=== PATIENT | male | born 1955 | race Caucasian/White ===

== ENCOUNTER 2017-02-11 08:11 | Emergency (ER) | payer BC ==
[2017-02-11] MEDS ORDERED: Ketorolac 30 MG/ML SDV IVPUSH ONE (08:47)
[2017-02-11] MEDS ORDERED: Metoclopramide 10 MG/2 ML SDV IVPUSH ONE (08:48)
--- NOTE | 2017-02-11 08:58 | EDM.PDOC ---
ED HPI GENERAL MEDICAL PROBLEM - General Chief Complaint: General Stated Complaint: NAUSUA Time Seen by Provider: 02/11/17 08:53 Source of Information: Reports: Patient History Limitations: Reports: No Limitations - History of Present Illness INITIAL COMMENTS - FREE TEXT/NARRATIVE: c/o malaise x 2d from [place], goes to [facility] had L TKR in [place] 4d ago, d/c'ed home 3d ago, had malaise x 2d, had apt at 4p at [facility] yesterday but "felt too bad to go,", had bitemporal LOWE yesterday PM that was worse on awakening today, took APAP x 2 and decided to come to ED holding head in his hands also has had urinary freq x 3d, no dysuria, no bladder or prostate problems in past has urge to void, voids only a little, drinking and eating little pt voided before coming to ED, bladder scan with 880 cc, will place an indwelling pozo not taken meds for his knee, pain 1/10 for knee and 7/10 for LOWE, states his bladder issue is 7/10 in terms of being troublesome (no pain however) Headache Pain Score (Numeric/FACES): 7 - Related Data Allergies Allergy/AdvReac Type Severity Reaction Status Date / Time codeine Allergy Nausea Verified 02/11/17 08:35 Penicillins Allergy Nausea Verified 02/11/17 08:35 Home Meds: Home Meds Aspirin [Adult Low Dose Aspirin EC] 81 mg PO DAILY 08/21/13 [History] Allopurinol [Zyloprim] 100 mg PO DAILY 02/11/17 [History] Celecoxib [Celecoxib] 200 mg PO DAILY 02/11/17 [History] oxyCODONE [oxyCODONE] 5 mg PO Q4HR PRN 02/11/17 [History] traMADol HCl [Tramadol HCl] 50 mg PO Q6HR PRN 02/11/17 [History] Past Medical History Musculoskeletal History: Reports: Gout - Past Surgical History Musculoskeletal Surgical History: Reports: Hip Replacement, Knee Replacement Social & Family History - Tobacco Use Smoking Status *Q: Never Smoker - Caffeine Use Caffeine Use: Reports: Coffee - Recreational Drug Use Recreational Drug Use: No ED ROS GENERAL - Review of Systems Review Of Systems: See Below Constitutional: Reports: Chills, Malaise, Decreased Appetite, Other (has had flu vax, no fever). Denies: Fever, Night Sweats, Diaphoresis HEENT: Reports: No Symptoms Respiratory: Reports: No Symptoms Cardiovascular: Reports: No Symptoms Endocrine: Reports: No Symptoms GI/Abdominal: Reports: No Symptoms : Reports: No Symptoms Musculoskeletal: Reports: No Symptoms Skin: Reports: No Symptoms Neurological: Reports: No Symptoms Psychiatric: Reports: No Symptoms Hematologic/Lymphatic: Reports: No Symptoms Immunologic: Reports: No Symptoms ED EXAM, GENERAL - Physical Exam Exam: See Below Exam Limited By: No Limitations General Appearance: Alert, WD/WN, Mild Distress, Other (sitting in chair, holding head in his hands, leaning forward) Eye Exam: Bilateral Eye: Normal Inspection, PERRL Ears: Normal External Exam, Normal Canal, Hearing Grossly Normal Nose: Normal Inspection, Normal Mucosa, No Blood Throat/Mouth: Normal Inspection, Normal Lips, Normal Teeth, Normal Gums, Normal Oropharynx, Normal Voice, No Airway Compromise Head: Atraumatic, Normocephalic Neck: Normal Inspection, Supple, Non-Tender, Full Range of Motion Respiratory/Chest: No Respiratory Distress, Lungs Clear, Normal Breath Sounds, No Accessory Muscle Use, Chest Non-Tender Cardiovascular: Regular Rate, Rhythm, No Edema, No Gallop, No JVD, No Murmur, No Rub GI/Abdominal: Normal Bowel Sounds, Soft, No Organomegaly, No Distention, Other ( slight tender LLQ just to L of midline) Back Exam: Normal Inspection. No: CVA Tenderness (R), CVA Tenderness (L) Extremities: Other (trace pretib edema R and trace to 1+ on L) Neurological: Alert, Oriented, CN II-XII Intact, Normal Cognition, No Motor/ Sensory Deficits Psychiatric: Normal Affect, Normal Mood Skin Exam: Warm, Dry, Intact, Normal Color, No Rash Lymphatic: No Adenopathy Course - Vital Signs Last Recorded V/S: Last Vital Signs Temp 36.2 C 02/11/17 08:40 Pulse 90 02/11/17 08:40 Resp 24 H 02/11/17 08:40 BP 110/64 02/11/17 08:40 Pulse Ox 100 02/11/17 08:40 - Orders/Labs/Meds Orders: Active Orders 24 hr Category Date Time Status Bladder Scan [RC] ONETIME Care 02/11/17 08:43 Active Insert Pozo Catheter [Insert Urinary Catheter] [OM.PC] Care 02/11/17 09:00 Ordered Q24H Urinary Catheter Assessment [RC] QSHIFT Care 02/11/17 08:58 Active PROSTATE SPECIFIC ANTIGEN [REF] Stat Lab 02/11/17 10:57 Ordered Sodium Chloride 0.9% [Normal Saline] 1,000 ml Med 02/11/17 09:45 Active IV ASDIRECTED Sodium Chloride 0.9% [Saline Flush] Med 02/11/17 09:12 Active 10 ml FLUSH ASDIRECTED PRN Saline Lock Insert [OM.PC] Routine Oth 02/11/17 09:12 Ordered Medication Orders Sodium Chloride (Normal Saline) 1,000 mls @ 999 mls/hr IV ASDIRECTED KENNA Last Admin: 02/11/17 10:00 Dose: 999 mls/hr Sodium Chloride (Saline Flush) 10 ml FLUSH ASDIRECTED PRN PRN Reason: Keep Vein Open Last Admin: 02/11/17 10:00 Dose: 10 ml Admin: 02/11/17 09:30 Dose: 10 ml Labs: Laboratory Tests 02/11/17 02/11/17 02/11/17 Range/Units 09:05 09:05 09:06 WBC 10.6 (4.5-12.0) X10-3/uL RBC 4.92 (4.30-5.75) x10(6)uL Hgb 14.7 (11.5-15.5) g/dL Hct 43.3 (30.0-51.3) % MCV 88.0 (80-96) fL MCH 29.8 (27.7-33.6) pg MCHC 33.9 (32.2-35.4) g/dL RDW 11.9 (11.5-15.5) % Plt Count 360 (125-369) X10(3)uL MPV 7.8 (7.4-10.4) fL Neut % (Auto) 80.3 (46-82) % Lymph % (Auto) 13.5 (13-37) % [place] % (Auto) 5.1 (4-12) % Eos % (Auto) 1 (1.0-5.0) % Baso % (Auto) 0 (0-2) % Neut # (Auto) 8.6 H (1.6-8.3) # Lymph # (Auto) 1.4 (0.6-5.0) # [place] # (Auto) 0.5 (0.0-1.3) # Eos # (Auto) 0.1 (0.0-0.8) # Baso # (Auto) 0.0 (0.0-0.2) # Sodium 140 (135-145) mmol/L Potassium 3.7 (3.5-5.3) mmol/L Chloride 102 (100-110) mmol/L Carbon Dioxide 28 (21-32) mmol/L BUN 14 (7-18) mg/dL Creatinine 1.1 (0.70-1.30) mg/dL Est Cr Clr Drug Dosing 78.38 mL/min Estimated GFR (MDRD) > 60 (>60) BUN/Creatinine Ratio 12.7 (9-20) Glucose 108 (80-116) mg/dL Calcium 9.3 (8.6-10.2) mg/dL Total Bilirubin 1.4 H (0.1-1.3) mg/dL AST 18 (5-25) IU/L ALT 24 (12-36) U/L Alkaline Phosphatase 60 (56-112) IU/L Total Protein 7.5 (6.0-8.0) g/dL Albumin 3.3 (3.2-4.6) g/dL Globulin 4.2 g/dL Albumin/Globulin Ratio 0.8 Urine Color Yellow (YELLOW) Urine Appearance Clear (CLEAR) Urine pH 8.0 H (5.0-6.5) Ur Specific [place] 1.015 (1.010-1.025) Urine Protein Negative (NEGATIVE) mg/dL Urine Glucose (UA) Normal (NEGATIVE) mg/dL Urine Ketones Negative (NEGATIVE) mg/dL Urine Occult Blood Negative (NEGATIVE) Urine Nitrite Negative (NEGATIVE) Urine Bilirubin Negative (NEGATIVE) Urine Urobilinogen Normal (NEGATIVE) mg/dL Ur Leukocyte Esterase Negative (NEGATIVE) Urine WBC 0-5 (0) Ur Squamous Epith Cells Few H (NS,R,O) Urine Bacteria Few H (NS) Meds: Medications Generic Name Dose Route Start Last Admin Trade Name Freq PRN Reason Stop Dose Admin Sodium Chloride 1,000 mls @ 999 mls/hr 02/11/17 09:45 02/11/17 10:00 Normal Saline IV 999 mls/hr ASDIRECTED KENNA Administration Sodium Chloride 10 ml 02/11/17 09:12 02/11/17 10:00 Saline Flush FLUSH 10 ml ASDIRECTED PRN Administration Keep Vein Open Discontinued Medications Generic Name Dose Route Start Last Admin Trade Name Freq PRN Reason Stop Dose Admin Ketorolac Tromethamine 30 mg 02/11/17 08:47 02/11/17 09:27 Toradol IVPUSH 02/11/17 08:48 30 mg ONETIME ONE Administration Metoclopramide HCl 10 mg 02/11/17 08:48 02/11/17 09:28 Reglan IVPUSH 02/11/17 08:49 10 mg ONETIME ONE Administration Morphine Sulfate 4 mg 02/11/17 10:54 Morphine IVPUSH 02/11/17 10:55 ONETIME ONE Ondansetron HCl 4 mg 02/11/17 10:55 Zofran IVPUSH 02/11/17 10:56 ONETIME ONE - Re-Assessments/Exams Free Text/Narrative Re-Assessment/Exam: 02/11/17 10:55 feeling much better after pozo and IVF and Toradol and Reglan, LOWE better, not gone, will give MS 4 mg IV as well as Zofran 4 mg IV and finish 1 liter NS some effort was required to place pozo, PSA ordered and f/u apt in 2d at [facility] made Departure - Departure Time of Disposition: 10:57 Disposition: Home, Self-Care 01 Condition: Good Clinical Impression: Acute urinary obstruction - Discharge Information Instructions: Acute Urinary Retention, Male Referrals: Willie Correa MD [Primary Care Provider] - Forms: ED Department Discharge Additional Instructions: To help break pain cycle, take ibuprofen 200 mg 3 tabs 4 times a day for 24 hours. As needed, may also use oxycodone for pain as prescribed. See Dr Velásquez at [facility] at [address] [place] [address] at 10:30 AM in 2 days on , clinic phone [phone]. A PSA test has been ordered. The results will be fax'ed to Dr Velásquez. Return to ED if you are feeling worse. Call your Physician or Return to Emergency Department if: * Your condition worsens in any way. * You develop fever greater than 100.4. * You have vomiting that does not stop with medications. * You have pain that is not controlled with medications. - My Orders Last 24 Hours: My Active Orders 02/11/17 08:43 Bladder Scan [RC] ONETIME 02/11/17 08:58 Urinary Catheter Assessment [RC] QSHIFT 02/11/17 09:00 Insert Pozo Catheter [Insert Urinary Catheter] [OM.PC] Q24H 02/11/17 09:12 Sodium Chloride 0.9% [Saline Flush] 10 ml FLUSH ASDIRECTED PRN Saline Lock Insert [OM.PC] Routine 02/11/17 09:45 Sodium Chloride 0.9% [Normal Saline] 1,000 ml IV ASDIRECTED 02/11/17 10:57 PROSTATE SPECIFIC ANTIGEN [REF] Stat - Assessment/Plan Last 24 Hours: My Active Orders 02/11/17 08:43 Bladder Scan [RC] ONETIME 02/11/17 08:58 Urinary Catheter Assessment [RC] QSHIFT 02/11/17 09:00 Insert Pozo Catheter [Insert Urinary Catheter] [OM.PC] Q24H 02/11/17 09:12 Sodium Chloride 0.9% [Saline Flush] 10 ml FLUSH ASDIRECTED PRN Saline Lock Insert [OM.PC] Routine 02/11/17 09:45 Sodium Chloride 0.9% [Normal Saline] 1,000 ml IV ASDIRECTED 02/11/17 10:57 PROSTATE SPECIFIC ANTIGEN [REF] Stat
[2017-02-11] MEDS: Sodium Chloride 0.9% 10 ML Syringe FLUSH PRN ×2 (09:30→10:00)
[2017-02-11] MEDS ORDERED: Sodium Chloride 0.9% 1,000 ML IV SCH (09:45)
[2017-02-11] MEDS ORDERED: Morphine 4 MG/ML Syringe IVPUSH ONE (10:54)
[2017-02-11] MEDS ORDERED: Ondansetron 4 MG/2 ML SDV IVPUSH ONE (10:55)
== END 2017-02-11 11:15 | disposition home or self-care (01) ==
LOC: FB.ED 08:11
DX: N13.9 Obstructive and reflux uropathy, unspecified (principal); Z79.82 Long term (current) use of aspirin; Z79.899 Other long term (current) drug therapy; Z88.0 Allergy status to penicillin; Z88.5 Allergy status to narcotic agent
CPT/HCPCS: 36415; 51702; 51798; 80053; 81001; 84153; 85025; 96361; 96374; 96375; 99285; J1885; J2270; J2405; J2765; J7040; J7050

== ENCOUNTER 2017-02-13 19:12 | Emergency (ER) | payer BC ==
[2017-02-13] MEDS ORDERED: Sodium Chloride 0.9% 10 ML Syringe FLUSH PRN (20:09)
[2017-02-13] MEDS ORDERED: Ondansetron 4 MG/2 ML SDV IVPUSH ONE (20:11)
[2017-02-13] MEDS ORDERED: HYDROmorphone 2 MG/ML SDV IM ONE (20:13)
[2017-02-13] MEDS ORDERED: Lactated Ringers 1,000 ML IV SCH (20:15)
--- NOTE | 2017-02-13 21:48 | EDM.PDOC ---
ED HPI GENERAL MEDICAL PROBLEM - General Chief Complaint: Headache Stated Complaint: SPINAL TAP HEADACHE Time Seen by Provider: 02/13/17 19:45 Source of Information: Reports: Patient, Family History Limitations: Reports: No Limitations - History of Present Illness INITIAL COMMENTS - FREE TEXT/NARRATIVE: Patient is a 61 year old man who 6 days ago had a left knee TKA. He was doing well but 3 days ago he started to develop a spinal headache. He had had problems urinating 5 days ago. He had nausea and vomiting 3 days ago. He was seen today by urology in [place] and was then evaluated for a spinal headache today for 6 hours and he was told if the headache got worse he needed a blood patch. He was going home to [place] and the headache, nausea and vomiting got worse, so he has come here to the ED to have the blood patch put on. All of his labs were reviewed from [facility] and he had a normal CBC, CMP and UA just hours ago. 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: Reports: NSAIDS, Other Medication(s) (Antiemetics and oxycodone and tramadol.) Headache Pain Score (Numeric/FACES): 8 - Related Data Allergies Allergy/AdvReac Type Severity Reaction Status Date / Time codeine Allergy Nausea Verified 02/13/17 19:24 Penicillins Allergy Nausea Verified 02/13/17 19:24 Home Meds: Home Meds Aspirin [Adult Low Dose Aspirin EC] 81 mg PO DAILY 08/21/13 [History] Allopurinol [Zyloprim] 100 mg PO DAILY 02/11/17 [History] Celecoxib [Celecoxib] 200 mg PO DAILY 02/11/17 [History] oxyCODONE [oxyCODONE] 5 mg PO Q4HR PRN 02/11/17 [History] traMADol HCl [Tramadol HCl] 50 mg PO Q6HR PRN 02/11/17 [History] Past Medical History HEENT History: Reports: Impaired Vision Genitourinary History: Reports: Other (See Below) Other Genitourinary History: pozo in for unable to void post op Musculoskeletal History: Reports: Gout - Infectious Disease History Infectious Disease History: Reports: Chicken Pox - Past Surgical History Musculoskeletal Surgical History: Reports: Hip Replacement, Knee Replacement Other Musculoskeletal Surgeries/Procedures:: had lt knee replaced last friday Social & Family History - Tobacco Use Smoking Status *Q: Never Smoker - Caffeine Use Caffeine Use: Reports: None - Recreational Drug Use Recreational Drug Use: No ED ROS GENERAL - Review of Systems Review Of Systems: See Below Constitutional: Reports: Decreased Appetite HEENT: Reports: Other (Headache.) Respiratory: Reports: No Symptoms Cardiovascular: Reports: No Symptoms Endocrine: Reports: No Symptoms GI/Abdominal: Reports: Nausea, Vomiting : Reports: No Symptoms Musculoskeletal: Reports: No Symptoms Skin: Reports: No Symptoms Neurological: Reports: Headache Psychiatric: Reports: No Symptoms Hematologic/Lymphatic: Reports: No Symptoms Immunologic: Reports: No Symptoms - Physical Exam Exam: See Below Exam Limited By: No Limitations General Appearance: Alert, WD/WN, No Apparent Distress Eye Exam: Bilateral Eye: EOMI, Normal Fundi, Normal Inspection, PERRL Ears: Normal External Exam, Normal Canal, Hearing Grossly Normal, Normal TMs Nose: Normal Inspection, Normal Mucosa, No Blood Throat/Mouth: Normal Inspection, Normal Lips, Normal Teeth, Normal Gums, Normal Oropharynx, Normal Voice, No Airway Compromise Head Exam: Atraumatic, Normocephalic Neck: Normal Inspection, Supple, Non-Tender, Full Range of Motion Respiratory/Chest: No Respiratory Distress, Lungs Clear, Normal Breath Sounds, No Accessory Muscle Use, Chest Non-Tender Cardiovascular: Normal Peripheral Pulses, Regular Rate, Rhythm, No Edema, No Gallop, No JVD, No Murmur, No Rub GI/Abdominal: Normal Bowel Sounds, Soft, Non-Tender, No Organomegaly, No Distention, No Abnormal Bruit, No Mass Neuro Exam (Abbreviated): Alert, Oriented, CN II-XII Intact, Normal Cognition, Normal Gait, Normal Reflexes, No Motor/Sensory Deficits Back Exam: Normal Inspection, Full Range of Motion, NT Extremities: Normal Inspection, Normal Range of Motion, Non-Tender, No Pedal Edema, Normal Capillary Refill Psychiatric: Normal Affect, Normal Mood Skin Exam: Warm Course - Vital Signs Text/Narrative:: Uneventful ED course. Nurse anesthesia did a blood patch and he felt much better and the headache pain went away. He will go home and resume his scheduled pain and anti nausea medications and he will follow up with Urology and Orthopedics next week as scheduled. Last Recorded V/S: Last Vital Signs Temp 36.6 C 02/13/17 19:25 Pulse 77 02/13/17 21:07 Resp 16 02/13/17 21:07 BP 138/76 02/13/17 21:07 Pulse Ox 95 02/13/17 21:07 - Orders/Labs/Meds Orders: Active Orders 24 hr Category Date Time Status Lactated Ringers [Ringers, Lactated] 1,000 ml Med 02/13/17 20:15 Active IV ASDIRECTED Sodium Chloride 0.9% [Saline Flush] Med 02/13/17 20:09 Active 10 ml FLUSH ASDIRECTED PRN Saline Lock Insert [OM.PC] Routine Oth 02/13/17 20:09 Ordered Medication Orders Lactated Ringer's (Ringers, Lactated) 1,000 mls @ 0 mls/hr IV ASDIRECTED KENNA PRN Reason: KVO Last Admin: 02/13/17 20:26 Dose: 25 mls/hr Sodium Chloride (Saline Flush) 10 ml FLUSH ASDIRECTED PRN PRN Reason: Keep Vein Open Last Admin: 02/13/17 20:25 Dose: 10 ml Meds: Medications Generic Name Dose Route Start Last Admin Trade Name Freq PRN Reason Stop Dose Admin Lactated Ringer's 1,000 mls @ 0 mls/hr 02/13/17 20:15 02/13/17 20:26 Ringers, Lactated IV 25 mls/hr ASDIRECTED KENNA Administration KVO Sodium Chloride 10 ml 02/13/17 20:09 02/13/17 20:25 Saline Flush FLUSH 10 ml ASDIRECTED PRN Administration Keep Vein Open Discontinued Medications Generic Name Dose Route Start Last Admin Trade Name Freq PRN Reason Stop Dose Admin Hydromorphone HCl 2 mg 02/13/17 20:13 02/13/17 20:35 Dilaudid IM 02/13/17 20:14 2 mg ONETIME ONE Administration Ondansetron HCl 4 mg 02/13/17 20:11 02/13/17 20:30 Zofran IVPUSH 02/13/17 20:12 4 mg ONETIME ONE Administration Departure - Departure Time of Disposition: 21:55 Disposition: Home, Self-Care 01 Condition: Good Clinical Impression: Headache, spinal, postoperative - Discharge Information Referrals: PCP,Not In Area [Primary Care Provider] - - My Orders Last 24 Hours: My Active Orders 02/13/17 20:09 Sodium Chloride 0.9% [Saline Flush] 10 ml FLUSH ASDIRECTED PRN Saline Lock Insert [OM.PC] Routine 02/13/17 20:15 Lactated Ringers [Ringers, Lactated] 1,000 ml IV ASDIRECTED - Assessment/Plan Last 24 Hours: My Active Orders 02/13/17 20:09 Sodium Chloride 0.9% [Saline Flush] 10 ml FLUSH ASDIRECTED PRN Saline Lock Insert [OM.PC] Routine 02/13/17 20:15 Lactated Ringers [Ringers, Lactated] 1,000 ml IV ASDIRECTED
== END 2017-02-13 22:01 | disposition home or self-care (01) ==
LOC: FB.ED 19:12
DX: G97.1 Other reaction to spinal and lumbar puncture (principal); Z96.659 Presence of unspecified artificial knee joint
CPT/HCPCS: 62273; 96361; 96372; 96374; 99284; J1170; J2405; J7050; J7120

== ENCOUNTER 2019-06-01 07:12 | Emergency (ER) | payer BC ==
--- NOTE | 2019-06-01 07:47 | EDM.PDOC ---
ED HPI GENERAL MEDICAL PROBLEM - General Chief Complaint: Gastrointestinal Problem Stated Complaint: LOWER ABD PAIN Time Seen by Provider: 06/01/19 07:26 - History of Present Illness INITIAL COMMENTS - FREE TEXT/NARRATIVE: Carlton comes in with 3 days of diarrhea and lower abdominal cramping pain. Sxs were gradual in onset, without back pain, nausea or vomiting, and no voiding sxs. He did consume popcorn a couple of days before onset of sxs. He has a known hx of diverticulosis detected at a colonscopy about 2 mos ago, report reviewed. He has tried no meds. - Related Data Allergies Allergy/AdvReac Type Severity Reaction Status Date / Time codeine Allergy Nausea Verified 06/01/19 07:38 Penicillins Allergy Nausea Verified 06/01/19 07:38 Home Meds: Home Meds Aspirin [Adult Low Dose Aspirin EC] 81 mg PO DAILY 08/21/13 [History] Allopurinol [Zyloprim] 100 mg PO DAILY 02/11/17 [History] Celecoxib 200 mg PO DAILY 02/11/17 [History] oxyCODONE 5 mg PO Q4HR PRN 02/11/17 [History] traMADol HCl [Tramadol HCl] 50 mg PO Q6HR PRN 02/11/17 [History] Ciprofloxacin HCl [Cipro] 500 mg PO BID #14 tablet 06/01/19 [Rx] metroNIDAZOLE [Metronidazole] 500 mg PO TID #20 tablet 06/01/19 [Rx] Past Medical History HEENT History: Reports: Impaired Vision Genitourinary History: Reports: Other (See Below) Other Genitourinary History: pozo in for unable to void post op Musculoskeletal History: Reports: Gout - Infectious Disease History Infectious Disease History: Reports: Chicken Pox - Past Surgical History Musculoskeletal Surgical History: Reports: Hip Replacement, Knee Replacement Other Musculoskeletal Surgeries/Procedures:: had lt knee replaced last friday Social & Family History - Caffeine Use Caffeine Use: Reports: None ED ROS GENERAL - Review of Systems Review Of Systems: See Below Constitutional: Reports: Decreased Appetite, Other (Momentary sweats before onset of diarrhea) HEENT: Reports: No Symptoms Respiratory: Reports: No Symptoms Cardiovascular: Reports: No Symptoms Endocrine: Reports: No Symptoms GI/Abdominal: Reports: Abdominal Pain (LLQ), Diarrhea, Decreased Appetite : Reports: No Symptoms Musculoskeletal: Reports: No Symptoms Skin: Reports: No Symptoms Neurological: Reports: No Symptoms, Change in Speech Hematologic/Lymphatic: Reports: No Symptoms Immunologic: Reports: No Symptoms ED EXAM, GI/ABD - Physical Exam Exam: See Below Exam Limited By: No Limitations General Appearance: Alert, WD/WN, No Apparent Distress Ears: Normal External Exam, Normal TMs Nose: Normal Inspection Throat/Mouth: Normal Inspection, Normal Oropharynx Head: Normocephalic Neck: Normal Inspection Respiratory/Chest: No Respiratory Distress, Lungs Clear, No Accessory Muscle Use Cardiovascular: Regular Rate, Rhythm, No Murmur GI/Abdominal Exam: Normal Bowel Sounds, Soft, No Organomegaly, No Distention, No Mass, Tender (mild, LLQ) (Male) Exam: No Hernia, Normal Inspection, Normal Prostate Rectal (Males) Exam: Normal Exam, Heme - Stool Back Exam: Normal Inspection Extremities: Normal Inspection Neurological: Alert, Oriented, CN II-XII Intact, Normal Cognition, Normal Gait, No Motor/Sensory Deficits Psychiatric: Normal Affect, Normal Mood Skin Exam: Warm, Dry, Intact, Normal Color, No Rash Lymphatic: No Adenopathy Course - Vital Signs Text/Narrative:: Screening labs were negative. A review of a recent colonscopy noted diverticulosis. Last Recorded V/S: Last Vital Signs Temp 36.3 C 06/01/19 07:19 Pulse 53 L 06/01/19 07:19 Resp 16 06/01/19 07:19 BP 129/73 06/01/19 07:19 Pulse Ox 97 06/01/19 07:19 - Orders/Labs/Meds Labs: Laboratory Tests 06/01/19 06/01/19 06/01/19 Range/Units 07:25 07:50 07:50 WBC 10.5 (4.5-12.0) X10-3/uL RBC 5.84 H (4.30-5.75) x10(6)uL Hgb 17.5 (13.5-17.8) g/dL Hct 51.6 H (30.0-51.3) % MCV 88.4 (80-96) fL MCH 29.9 (27.7-33.6) pg MCHC 33.8 (32.2-35.4) g/dL RDW 12.4 (11.5-15.5) % Plt Count 416 H (125-369) X10(3)uL MPV 7.4 (7.4-10.4) fL Neut % (Auto) 68.4 (46-82) % Lymph % (Auto) 23.8 (13-37) % [place] % (Auto) 6.9 (4-12) % Eos % (Auto) 1 (1.0-5.0) % Baso % (Auto) 0 (0-2) % Neut # (Auto) 7.2 (1.6-8.3) # Lymph # (Auto) 2.5 (0.6-5.0) # [place] # (Auto) 0.7 (0.0-1.3) # Eos # (Auto) 0.1 (0.0-0.8) # Baso # (Auto) 0.0 (0.0-0.2) # Sodium 140 (135-145) mmol/L Potassium 4.1 (3.5-5.3) mmol/L Chloride 102 (100-110) mmol/L Carbon Dioxide 25 (21-32) mmol/L BUN 15 (7-18) mg/dL Creatinine 1.1 (0.70-1.30) mg/dL Est Cr Clr Drug Dosing 75.44 mL/min Estimated GFR (MDRD) > 60 (>60) BUN/Creatinine Ratio 13.6 (9-20) Glucose 112 (80-116) mg/dL Calcium 8.9 (8.6-10.2) mg/dL Total Bilirubin 0.9 (0.1-1.3) mg/dL AST 29 H D (5-25) IU/L ALT 40 H D (12-36) U/L Alkaline Phosphatase 67 (56-112) IU/L Total Protein 8.2 H (6.0-8.0) g/dL Albumin 4.1 (3.2-4.6) g/dL Globulin 4.1 g/dL Albumin/Globulin Ratio 1.0 Urine Color Yellow (YELLOW) Urine Appearance Clear (CLEAR) Urine pH 5.0 (5.0-6.5) Ur Specific [place] 1.025 (1.010-1.025) Urine Protein Negative (NEGATIVE) mg/dL Urine Glucose (UA) Normal (NORMAL) mg/dL Urine Ketones Negative (NEGATIVE) mg/dL Urine Occult Blood Negative (NEGATIVE) Urine Nitrite Negative (NEGATIVE) Urine Bilirubin Negative (NEGATIVE) Urine Urobilinogen Normal (NEGATIVE) mg/dL Ur Leukocyte Esterase Negative (NEGATIVE) Urine WBC 0-5 (0-5) Ur Squamous Epith Cells Occasional (NS,R,O) Urine Bacteria Few H (NS) Departure - Departure Time of Disposition: 09:00 Disposition: Home, Self-Care 01 Condition: Fair Clinical Impression: Diverticulosis of sigmoid colon - Discharge Information *PRESCRIPTION DRUG MONITORING PROGRAM REVIEWED*: Not Applicable *COPY OF PRESCRIPTION DRUG MONITORING REPORT IN PATIENT JOSE: Not Applicable Prescriptions: Ciprofloxacin HCl [Cipro] 500 mg PO BID #14 tablet metroNIDAZOLE [Metronidazole] 500 mg PO TID #20 tablet Forms: ED Department Discharge Sepsis Event Note - Focused Exam Vital Signs: Vital Signs Temp Pulse Resp BP Pulse Ox 06/01/19 07:19 36.3 C 53 L 16 129/73 97 Date Exam was Performed: 06/01/19 Time Exam was Performed: 08:47 - Problem List & Annotations (1) Diverticulosis of sigmoid colon SNOMED Code(s): 911960314 Code(s): K57.30 - DVRTCLOS OF LG INT W/O PERFORATION OR ABSCESS W/O BLEEDING Status: Acute Current Visit: Yes Annotation/Comment:: Probable diverticulosis. I dispensed Metronidazole 500 mg tid and Cipro 500 mg bid for a week, low residue diet, analgesic of choice. - Problem List Review Problem List Initiated/Reviewed/Updated: Yes - Assessment/Plan Plan: Follow up with PCP if needed.
== END 2019-06-01 09:02 | disposition home or self-care (01) ==
LOC: FB.ED 07:12
DX: K57.30 Diverticulosis of large intestine without perforation or abscess without bleeding (principal); Z88.5 Allergy status to narcotic agent; Z88.0 Allergy status to penicillin; M10.9 Gout, unspecified; Z79.82 Long term (current) use of aspirin; Z79.899 Other long term (current) drug therapy
CPT/HCPCS: 36415; 80053; 81001; 82272; 85025; 99284

== ENCOUNTER 2020-03-31 18:50 | Emergency (ER) | payer BC ==
[2020-03-31] MEDS ORDERED: Ciprofloxacin 500 MG Tab PO ONE (19:46)
[2020-03-31] MEDS ORDERED: Ketorolac 60 MG/2 ML SDV IM ONE (19:46)
[2020-03-31] MEDS ORDERED: Tamsulosin 0.4 MG Cap.ER PO ONE (19:52)
--- NOTE | 2020-03-31 19:53 | EDM.PDOC ---
ED HPI GENERAL MEDICAL PROBLEM - General Chief Complaint: General Stated Complaint: LOWER ABD PAIN/GROIN PAIN Time Seen by Provider: 03/31/20 19:10 Source of Information: Reports: Patient History Limitations: Reports: No Limitations - History of Present Illness INITIAL COMMENTS - FREE TEXT/NARRATIVE: suprapubic and perineal pain on an off with chills on occasion for 2 weeks , t gayle pain was very severe /10 and he had chill s pt also noted pain in the penile base area , pt has noted dribbling and straining to urinate with increased frequency denies STD . 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 Abdomen/penis Pain Score (Numeric/FACES): 5 - Related Data Allergies Allergy/AdvReac Type Severity Reaction Status Date / Time codeine Allergy Nausea Verified 06/01/19 07:38 Penicillins Allergy Vomiting Verified 03/31/20 19:36 Home Meds: Home Meds Aspirin [Adult Low Dose Aspirin EC] 81 mg PO DAILY 08/21/13 [History] Allopurinol [Zyloprim] 100 mg PO DAILY 02/11/17 [History] Ciprofloxacin HCl [Cipro] 500 mg PO BID #20 tablet 03/31/20 [Rx] Tamsulosin HCl [Flomax] 0.4 mg PO DAILY #30 cap.er.24h 03/31/20 [Rx] Past Medical History HEENT History: Reports: Impaired Vision Gastrointestinal History: Reports: Other (See Below) Other Gastrointestinal History: Diverticulitis Genitourinary History: Reports: Other (See Below) Other Genitourinary History: pozo in for unable to void post op Musculoskeletal History: Reports: Arthritis, Gout - Infectious Disease History Infectious Disease History: Reports: Chicken Pox Other Infectious Disease History: denies history of c diff and MRSA - Past Surgical History Musculoskeletal Surgical History: Reports: Hip Replacement, Knee Replacement Other Musculoskeletal Surgeries/Procedures:: had lt knee replaced last friday Social & Family History - Family History Family Medical History: No Pertinent Family History - Tobacco Use Tobacco Use Status *Q: Never Tobacco User - Caffeine Use Caffeine Use: Reports: Coffee - Recreational Drug Use Recreational Drug Use: No ED ROS GENERAL - Review of Systems Review Of Systems: Comprehensive ROS is negative, except as noted in HPI. ED EXAM, GENERAL - Physical Exam Exam: See Below Exam Limited By: No Limitations General Appearance: Alert, WD/WN, No Apparent Distress Eye Exam: Bilateral Eye: EOMI Ear Exam: Bilateral Ear: Discharge Nose: Normal Inspection Throat/Mouth: Normal Inspection, Normal Oropharynx Head: Normocephalic, Sinus Tenderness Respiratory/Chest: No Respiratory Distress, Lungs Clear Cardiovascular: Regular Rate, Rhythm Back Exam: Normal Inspection, Full Range of Motion Extremities: Normal Inspection, Normal Range of Motion Neurological: Alert, Oriented, CN II-XII Intact Psychiatric: Normal Affect, Normal Mood Skin Exam: Warm Course - Vital Signs Last Recorded V/S: Last Vital Signs Temp 36.4 C 03/31/20 20:00 Pulse 86 03/31/20 20:00 Resp 16 03/31/20 20:00 BP 132/79 03/31/20 20:00 Pulse Ox 98 03/31/20 20:00 - Orders/Labs/Meds Orders: Active Orders 24 hr Category Date Time Status CULTURE URINE [RM] Stat Lab 03/31/20 19:45 Ordered PSA TOTAL+% FREE Stat Lab 03/31/20 19:56 Ordered Labs: Laboratory Tests 03/31/20 Range/Units 19:20 Urine Color Yellow (YELLOW) Urine Appearance Clear (CLEAR) Urine pH 6.0 (5.0-6.5) Ur Specific [place] 1.020 (1.010-1.025) Urine Protein Negative (NEGATIVE) mg/dL Urine Glucose (UA) Normal (NORMAL) mg/dL Urine Ketones Negative (NEGATIVE) mg/dL Urine Occult Blood Moderate H (NEGATIVE) Urine Nitrite Negative (NEGATIVE) Urine Bilirubin Negative (NEGATIVE) Urine Urobilinogen Normal (NEGATIVE) mg/dL Ur Leukocyte Esterase Negative (NEGATIVE) Urine RBC 5-10 H (0-5) Urine WBC 0-5 (0-5) Ur Squamous Epith Cells Few H (NS,R,O) Urine Bacteria Few H (NS) Urine Mucus Few H (NS) Meds: Medications Discontinued Medications Generic Name Dose Route Start Last Admin Trade Name Freq PRN Reason Stop Dose Admin Ciprofloxacin 500 mg 03/31/20 19:46 03/31/20 19:49 Ciprofloxacin Hcl PO 03/31/20 19:47 500 mg ONETIME ONE Administration Ketorolac Tromethamine 60 mg 03/31/20 19:46 03/31/20 19:49 Toradol IM 03/31/20 19:47 60 mg ONETIME ONE Administration Tamsulosin HCl 0.4 mg 03/31/20 19:52 03/31/20 19:55 Flomax PO 03/31/20 19:53 0.4 mg ONETIME ONE Administration - Re-Assessments/Exams Free Text/Narrative Re-Assessment/Exam: 03/31/20 19:58 pt had UA done : showed mainly blood Will treat as prostatitis vs UTI, PSA ordered Will treat with Cipro and Flomax Pt will FU w PCP Departure - Departure Time of Disposition: 20:05 Disposition: Home, Self-Care 01 Condition: Fair Clinical Impression: Prostatitis, acute, Hematuria, Dysuria - Discharge Information *PRESCRIPTION DRUG MONITORING PROGRAM REVIEWED*: Not Applicable *COPY OF PRESCRIPTION DRUG MONITORING REPORT IN PATIENT JOSE: Not Applicable Prescriptions: Ciprofloxacin HCl [Cipro] 500 mg PO BID #20 tablet Tamsulosin HCl [Flomax] 0.4 mg PO DAILY #30 cap.er.24h Instructions: Prostatitis, Aaan-os-Wxam, Hematuria, Adult Referrals: PCP,None [Primary Care Provider] - Forms: ED Department Discharge Additional Instructions: 1) make appointment to see your PCP in 10 days ( after completion of ant ibiotics) 2) You will need repeat PSA 3) Increase fluid intake 4) Call with any concerns Sepsis Event Note (ED) - Evaluation Sepsis Screening Result: No Definite Risk - Focused Exam Vital Signs: Vital Signs Temp Pulse Resp BP Pulse Ox 03/31/20 20:00 36.4 C 86 16 132/79 98 03/31/20 19:05 35.8 C L 86 16 145/78 H 96 - My Orders Last 24 Hours: My Active Orders 03/31/20 19:45 CULTURE URINE [RM] Stat 03/31/20 19:56 PSA TOTAL+% FREE Stat - Assessment/Plan Last 24 Hours: My Active Orders 03/31/20 19:45 CULTURE URINE [RM] Stat 03/31/20 19:56 PSA TOTAL+% FREE Stat
[2020-04-04 08:12] LABS: % FREE PSA 18.6 % (.); PROSTATE SPECIFIC AG, SERUM 2.1 ng/mL (0.0-4.0); PSA, FREE 0.39 ng/mL
== END 2020-03-31 20:10 | disposition home or self-care (01) ==
LOC: FB.ED 18:50
DX: N41.9 Inflammatory disease of prostate, unspecified (principal); Z88.0 Allergy status to penicillin; Z88.5 Allergy status to narcotic agent; Z79.82 Long term (current) use of aspirin
CPT/HCPCS: 36415; 81001; 84153; 84154; 87086; 96372; 99283; A9270; J1885

== ENCOUNTER 2020-04-01 09:49 | Emergency (ER) | payer BC ==
[2020-04-01] MEDS ORDERED: Sodium Chloride 0.9% 1,000 ML IV SCH (10:30)
[2020-04-01] MEDS ORDERED: Ciprofloxacin in D5W 400 MG in Premix Bag 1 BAG IV ONE ×2 (10:31)
--- NOTE | 2020-04-01 10:34 | EDM.PDOC ---
ED HPI GENERAL MEDICAL PROBLEM - General Chief Complaint: Abdominal Pain Stated Complaint: LOWER RT ABD PAIN Time Seen by Provider: 04/01/20 09:55 Source of Information: Reports: Patient History Limitations: Reports: No Limitations - History of Present Illness INITIAL COMMENTS - FREE TEXT/NARRATIVE: seen yesterday for lower abd pain , penile pain and hematuria ,started on cipro floxacin Overnight pain got worse and moved from being central to the right flank: unbearable had to take percocet Still has no fever or chills Onset: Today, Gradual Onset Date: 03/31/20 Duration: Day(s):, Waxing/Waning Location: Reports: Abdomen Quality: Reports: Ache, Dull Severity: Moderate Improves with: Reports: None Worsens with: Reports: Movement Context: Reports: Activity Associated Symptoms: Denies: Diaphoresis, Malaise, Nausea/Vomiting RLQ Pain Score (Numeric/FACES): 5 - Related Data Allergies Allergy/AdvReac Type Severity Reaction Status Date / Time codeine Allergy Nausea Verified 06/01/19 07:38 Penicillins Allergy Vomiting Verified 03/31/20 19:36 Home Meds: Home Meds Aspirin [Adult Low Dose Aspirin EC] 81 mg PO DAILY 08/21/13 [History] Allopurinol [Zyloprim] 100 mg PO DAILY 02/11/17 [History] Ciprofloxacin HCl [Cipro] 500 mg PO BID #20 tablet 03/31/20 [Rx] Tamsulosin HCl [Flomax] 0.4 mg PO DAILY #30 cap.er.24h 03/31/20 [Rx] Hydrocodone/Acetaminophen [Hydrocodon-Acetaminophen 5-325] 1 each PO Q8HR PRN #10 tablet 04/01/20 [Rx] predniSONE [Prednisone] 50 mg PO DAILY #5 tablet 04/01/20 [Rx] Past Medical History HEENT History: Reports: Impaired Vision Gastrointestinal History: Reports: Other (See Below) Other Gastrointestinal History: Diverticulitis Genitourinary History: Reports: Other (See Below) Other Genitourinary History: pozo in for unable to void post op Musculoskeletal History: Reports: Arthritis, Gout - Infectious Disease History Infectious Disease History: Reports: Chicken Pox Other Infectious Disease History: denies history of c diff and MRSA - Past Surgical History Musculoskeletal Surgical History: Reports: Hip Replacement, Knee Replacement Other Musculoskeletal Surgeries/Procedures:: had lt knee replaced last friday Social & Family History - Family History Family Medical History: No Pertinent Family History - Caffeine Use Caffeine Use: Reports: Coffee ED ROS GENERAL - Review of Systems Review Of Systems: See Below Constitutional: Denies: Fever, Chills, Malaise, Weakness HEENT: Reports: No Symptoms Respiratory: Reports: No Symptoms Cardiovascular: Reports: No Symptoms Endocrine: Reports: No Symptoms GI/Abdominal: Reports: Abdominal Pain, Anorexia, Decreased Appetite. Denies: Constipation : Reports: Hematuria Musculoskeletal: Reports: No Symptoms, Muscle Pain Skin: Reports: No Symptoms Neurological: Reports: No Symptoms Psychiatric: Reports: No Symptoms Hematologic/Lymphatic: Reports: No Symptoms Immunologic: Reports: No Symptoms ED EXAM, GI/ABD - Physical Exam Exam: See Below Exam Limited By: No Limitations General Appearance: Alert, WD/WN, No Apparent Distress Eyes: Bilateral: EOMI Ears: Normal External Exam Nose: Normal Inspection Throat/Mouth: Normal Oropharynx Head: Atraumatic, Normocephalic Neck: Supple, Non-Tender Respiratory/Chest: No Respiratory Distress, Lungs Clear Cardiovascular: Normal Peripheral Pulses, Regular Rate, Rhythm GI/Abdominal Exam: Normal Bowel Sounds, Soft, Non-Tender Course - Vital Signs Last Recorded V/S: Last Vital Signs Temp 36.6 C 04/01/20 09:49 Pulse 89 04/01/20 09:49 Resp 17 04/01/20 09:49 BP 129/110 H 04/01/20 09:49 Pulse Ox 95 04/01/20 09:49 - Orders/Labs/Meds Orders: Active Orders 24 hr Category Date Time Status Abdomen Pelvis wo Cont [CT] Stat Exams 04/01/20 10:29 Taken Sodium Chloride 0.9% [Normal Saline] 1,000 ml Med 04/01/20 10:30 Active IV ASDIRECTED Medication Orders Sodium Chloride (Normal Saline) 1,000 mls @ 999 mls/hr IV ASDIRECTED KENNA Last Admin: 04/01/20 11:08 Dose: 999 mls/hr Documented by: JESSICA Labs: Laboratory Tests 04/01/20 04/01/20 Range/Units 10:47 10:47 WBC 11.2 H (3.2-10.1) x10-3/uL RBC 5.32 (3.90-5.90) x10(6)uL Hgb 15.4 (12.9-17.7) g/dL Hct 45.8 (38.3-50.1) % MCV 86.1 (80.8-98.7) fL MCH 29.0 (27.0-33.3) pg MCHC 33.6 (28.7-35.3) g/dL RDW 12.6 (12.4-15.0) % Plt Count 368 (117-477) x10(3)uL MPV 7.6 (6.7-11.0) fL Neut % (Auto) 70.6 (40.3-71.8) % Lymph % (Auto) 18.1 (15.8-45.3) % [place] % (Auto) 10.7 (5.5-15.2) % Eos % (Auto) 0.3 (0.1-6.8) % Baso % (Auto) 0.3 (0.3-3.8) % Neut # (Auto) 7.9 H (1.7-6.9) x10-3/uL Lymph # (Auto) 2.0 (0.5-4.5) x10-3/uL [place] # (Auto) 1.2 (0.0-1.2) x10-3/uL Eos # (Auto) 0.0 (0.0-0.6) x10-3/uL Baso # (Auto) 0.0 (0.0-0.3) x10-3/uL Sodium 140 (135-145) mmol/L Potassium 4.2 (3.5-5.3) mmol/L Chloride 102 (100-110) mmol/L Carbon Dioxide 27 (21-32) mmol/L BUN 28 H D (7-18) mg/dL Creatinine 1.6 H (0.70-1.30) mg/dL Est Cr Clr Drug Dosing TNP Estimated GFR (MDRD) 44 L (>60) BUN/Creatinine Ratio 17.5 (9-20) Glucose 111 (80-116) mg/dL Calcium 8.8 (8.6-10.2) mg/dL Total Bilirubin 0.5 (0.1-1.3) mg/dL AST 18 D (5-25) IU/L ALT 27 D (12-36) U/L Alkaline Phosphatase 69 (56-112) IU/L Total Protein 7.3 (6.0-8.0) g/dL Albumin 3.6 (3.2-4.6) g/dL Globulin 3.7 g/dL Albumin/Globulin Ratio 1.0 Meds: Medications Generic Name Dose Route Start Last Admin Trade Name Nadiya PRN Reason Stop Dose Admin Sodium Chloride 1,000 mls @ 999 mls/hr 04/01/20 10:30 04/01/20 11:08 Normal Saline IV 999 mls/hr ASDIRECTED KENNA Administration Discontinued Medications Generic Name Dose Route Start Last Admin Trade Name Nadiya PRN Reason Stop Dose Admin Ciprofloxacin/Dextrose 400 mg/ 200 mls @ 200 mls/hr 04/01/20 10:31 04/01/20 11:08 Premix IV 04/01/20 11:30 200 mls/hr ONETIME ONE Administration - Re-Assessments/Exams Free Text/Narrative Re-Assessment/Exam: 04/01/20 11:52 CT report obtained pt has renal calculi on the right side discussed treatment with pt currently getting IVf and flomax will FU with PCP Departure - Departure Time of Disposition: 13:15 Disposition: Home, Self-Care 01 Condition: Fair Clinical Impression: Right renal stone - Discharge Information *PRESCRIPTION DRUG MONITORING PROGRAM REVIEWED*: Not Applicable *COPY OF PRESCRIPTION DRUG MONITORING REPORT IN PATIENT JOSE: Not Applicable Prescriptions: Hydrocodone/Acetaminophen [Hydrocodon-Acetaminophen 5-325] 1 each PO Q8HR PRN #10 tablet PRN Reason: Pain (Severe 7-10) predniSONE [Prednisone] 50 mg PO DAILY #5 tablet Instructions: Low-Purine Eating Plan, Kidney Stones, [id number] Referrals: PCP,None [Primary Care Provider] - Forms: ED Department Discharge Additional Instructions: 1) Strain urine , obtain stone and take to your PCP for analysis 2) Increase fluid intake 3) Continue with all medications as prescribed , if symptoms do not resolve , you will need to see the urologist Sepsis Event Note (ED) - Focused Exam Vital Signs: Vital Signs Temp Pulse Resp BP Pulse Ox 04/01/20 09:49 36.6 C 89 17 129/110 H 95 - My Orders Last 24 Hours: My Active Orders 04/01/20 10:29 Abdomen Pelvis wo Cont [CT] Stat 04/01/20 10:30 Sodium Chloride 0.9% [Normal Saline] 1,000 ml IV ASDIRECTED - Assessment/Plan Last 24 Hours: My Active Orders 04/01/20 10:29 Abdomen Pelvis wo Cont [CT] Stat 04/01/20 10:30 Sodium Chloride 0.9% [Normal Saline] 1,000 ml IV ASDIRECTED
== END 2020-04-01 13:00 | disposition home or self-care (01) ==
LOC: FB.ED 09:49
DX: N13.2 Hydronephrosis with renal and ureteral calculous obstruction (principal); M10.9 Gout, unspecified; Z79.899 Other long term (current) drug therapy; Z88.5 Allergy status to narcotic agent; Z88.0 Allergy status to penicillin
CPT/HCPCS: 36415; 74176; 80053; 85025; 96365; 99284; 99284-25; J0744; J7030